=== PATIENT | female | born 1955 | race Caucasian/White ===

== ENCOUNTER 2019-01-26 18:20 | Emergency (ER) | payer OTHER ==
[2019-01-26] MEDS: SOD CHLORIDE 0.9% IV (18:27)
[2019-01-26 18:38] LABS: ADD MAN DIFF? NO
[2019-01-26 18:40] LABS: WHITE BLOOD COUNT 3.6 10^3/ul (4.8-10.8)
[2019-01-26 18:40] LABS: ABNORMAL IP MESSAGE 1; BASOPHILS % 1.1 % (0.0-2.0); EOSINOPHILS # 0.1 10^3/ul (0.0-0.5); EOSINOPHILS % 3.6 % (0.0-7.0); HEMATOCRIT 39.3 % (37.0-47.0); HEMOGLOBIN 13.2 g/dl (12.0-16.0); LYMPHOCYTES # 0.6 10^3/ul (0.8-2.9); MEAN CORPUSCULAR HEMOGLOBIN 28.9 pg (29.0-33.0); MEAN CORPUSCULAR HGB CONC 33.6 g/dl (32.0-37.0); MEAN CORPUSCULAR VOLUME 86.2 fl (82.0-101.0); MEAN PLATELET VOLUME 9.2 fl (7.4-10.4); MONOCYTE # 0.3 10^3/ul (0.3-0.9); MONOCYTES % 8.1 % (0.0-11.0); NEUTROPHIL # 2.5 10^3/ul (1.6-7.5); NEUTROPHILS % 70.9 % (39.0-77.0); PLATELET COUNT 170 10^3/UL (140-415); RED BLOOD COUNT 4.56 10^6/ul (4.20-5.40); RED CELL DISTRIBUTION WIDTH 12.8 % (11.5-14.5)
[2019-01-26] MEDS: ACETAMINOPHEN 650 MG SUPP PR (18:45)
[2019-01-26 18:48] LABS: POSITIVE DIFF @See below
[2019-01-26] MEDS: CEFTRIAXONE 1 GM/50 ML (PMX) 50 ML IVPB (18:56)
[2019-01-26 18:57] LABS: ALANINE AMINOTRANSFERASE 60 IU/L (13-69); ALBUMIN 3.2 g/dl (3.3-4.9); ALBUMIN/GLOBULIN RATIO 1.52; ALKALINE PHOSPHATASE 109 IU/L (42-121); ANION GAP 6 (5-13); ASPARTATE AMINO TRANSFERASE 26 IU/L (15-46); BILIRUBIN,INDIRECT 0.6 mg/dl (0-1.1); BILIRUBIN,TOTAL 0.6 mg/dl (0.2-1.3); BLOOD UREA NITROGEN 18 mg/dl (7-20); CARBON DIOXIDE 24 mmol/L (21-31); CHLORIDE 109 mmol/L (97-110); CREATININE 0.37 mg/dl (0.44-1.00); Estimated GFR > 60 mL/min (>60); GLUCOSE 98 mg/dl (70-220); POTASSIUM 3.7 mmol/L (3.5-5.1); SODIUM 139 mmol/L (135-144); TOTAL PROTEIN 5.3 g/dl (6.1-8.1)
[2019-01-26 18:58] LABS: CREATINE KINASE 34 IU/L (23-200)
[2019-01-26 19:00] LABS: INR 1.04; PROTIME 13.7 Sec (11.9-14.9); PT RATIO 1.1
[2019-01-26 19:09] LABS: TROPONIN-I < 0.012 ng/ml (0.000-0.120)
[2019-01-26 19:12] LABS: PARTIAL THROMBOPLASTIN TIME 28.1 Sec (23.0-35.0)
[2019-01-26 19:12] LABS: ETHANOL < 10.0 mg/dl (0-0)
[2019-01-26 19:18] LABS: AADO2 Arterial 204.7 mmHg (7.0-24.0); Arterial Base Excess -1.1 mmol/L (-3.0-3); Arterial Blood Gas Oxygen Sat 99.3 mmHG (95.0-98.0); Arterial COHb 0.2 % (0.0-3.0); Arterial Fraction of Oxyhgb 98.7 % (93.0-99.0); Arterial HCO3 21.7 mmol/L (22.0-26.0); Arterial MetHb 0.4 % (0.0-1.5); Arterial pCO2 30.9 mmhg (35-45); MODE MASK - NRB; Site Right Brachial; URINE BLOOD (Dip) POC Negative (NEGATIVE); URINE GLUCOSE (Dip) POC Negative (NEGATIVE); URINE KETONES (Dip) POC 1+ (NEGATIVE); URINE LEUKOCYTE EST (Dip) POC Negative (NEGATIVE); URINE NITRITE (Dip) POC Negative (NEGATIVE); URINE TOTAL PROTEIN POC 1+ (NEGATIVE)
[2019-01-26 19:18] LABS: URINE PH (Dip) POC 7.5 (5.0-8.5)
[2019-01-26 19:36] LABS: ADD UMIC NO; UR ASCORBIC ACID NEGATIVE (NEGATIVE); UR BACTERIA FEW /HPF (NONE SEEN); UR BILIRUBIN (Dip) NEGATIVE (NEGATIVE); UR BLOOD (Dip) NEGATIVE (NEGATIVE); UR CLARITY SLIGHTLY CLOUDY (CLEAR); UR COLOR YELLOW (YELLOW); UR GLUCOSE (Dip) NEGATIVE (NEGATIVE); UR KETONES (Dip) TRACE mg/dL (NEGATIVE); UR LEUKOCYTE ESTERASE (Dip) NEGATIVE Leu/ul (NEGATIVE); UR NITRITE (Dip) NEGATIVE (NEGATIVE); UR NONSQUAMOUS EPITHELIAL CELL 5 /HPF (NONE SEEN); UR RBC 4 /HPF (0-5); UR SPECIFIC GRAVITY (Dip) 1.019 (1.003-1.030); UR SQUAMOUS EPITHELIAL CELL FEW /HPF (FEW); UR TOTAL PROTEIN (Dip) NEGATIVE (NEGATIVE); UR UROBILINOGEN (Dip) NEGATIVE (NEGATIVE); UR WBC 9 /HPF (0-5)
[2019-01-26 20:47] LABS: AMPHETAMINE/METHAMPHETAMINE NEGATIVE (NEGATIVE); BARBITURATES NEGATIVE (NEGATIVE); BENZODIAZEPINES NEGATIVE (NEGATIVE); CANNABINOIDS NEGATIVE (NEGATIVE); COCAINE NEGATIVE (NEGATIVE); OPIATES NEGATIVE (NEGATIVE)
[2019-01-26 22:20] LABS: LACTIC ACID 0.9 mmol/L (0.5-2.0)
== END 2019-01-27 00:20 | disposition short-term general hospital (02) ==
LOC: E/R 01-27 00:20
DX: R55 Syncope and collapse (principal); R50.9 Fever, unspecified; E86.0 Dehydration; D72.819 Decreased white blood cell count, unspecified
CPT/HCPCS: 36415; 36600; 70450; 71045; 72125; 80053; 80307; 81001; 81003; 82550; 82803; 82962; 83605; 84484; 85025; 85610; 85730; 87040-91; 87086; 93005; 96374; 99285-25